=== PATIENT | female | born 1930 | race Caucasian/White ===

== ENCOUNTER 2019-09-11 19:20 | Inpatient (IN) | payer OTHER ==
[~2019-09-11] VITALS: Ht 152.4 cm; Wt 76.7 kg
[2019-09-11 19:23] VITALS: BP 190/77
[2019-09-11 20:09] LABS: URINE BILIRUBIN NEGATIVE (Negative); URINE BLOOD NEGATIVE (Negative); URINE CLARITY CLEAR; URINE COLOR YELLOW; URINE GLUCOSE-RANDOM* NEGATIVE (Negative); URINE KETONES NEGATIVE (Negative); URINE LEUKOCYTES-REFLEX NEGATIVE (Negative); URINE NITRITE-REFLEX NEGATIVE (Negative); URINE PROTEIN (DIPSTICK) NEGATIVE (Negative); URINE UROBILINOGEN 0.2 E.U./dl (0.2-1.0)
[2019-09-11 20:26] LABS: AMP/METHAMP Negative (Negative); BARBITURATES Negative (Negative); BENZODIAZEPINES Negative (Negative); COCAINE Negative (Negative); METHADONE Negative (Negative); OPIATES Negative (Negative); PCP Negative (Negative)
[2019-09-11 20:37] LABS: ABSOLUTE NEUTROPHILS 10.3 thou/uL (1.4-8.2); BASOPHILS 0.8 % (0.0-2.0); EOSINOPHILS 0.5 % (0.0-3.0); HEMATOCRIT 31.7 % (37.0-47.0); MCH 24.3 pg (26.0-34.0); MCHC 31.4 g/dL (28.0-37.0); MCV 77.2 fL (80.0-100.0); MONOCYTES 11.5 % (1.0-8.0); PLATELET COUNT 212 thou/uL (150-400); POLYS 75.2 % (36.0-66.0); RDW 15.4 % (10.5-14.5); WBC 13.6 thou/uL (4.0-11.0)
[2019-09-11] MEDS ORDERED: CALCIUM CARBON500 MG PO (20:51)
[2019-09-11] MEDS ORDERED: SYMBICORT160 MCG/4. INH (20:54)
[2019-09-11] MEDS ORDERED: PROAIR HFA8.5 GM INH (20:54)
[2019-09-11] MEDS ORDERED: FLONASE 0.05%50 MCG NARES (20:55)
[2019-09-11] MEDS ORDERED: TESSALON PERLE100 M1 PO (20:55)
[2019-09-11 20:56] LABS: CREATININE 0.9 mg/dL (0.6-1.0); POTASSIUM 3.6 mmol/L (3.5-5.1)
[2019-09-11] MEDS ORDERED: FUROSEMIDE 40 M40 MG PO (20:56)
[2019-09-11] MEDS ORDERED: DELZICOL400 M1 PO (20:56)
[2019-09-11] MEDS ORDERED: COZAAR 25 MG TA25 M2 PO (20:57)
[2019-09-11] MEDS ORDERED: HYDRALAZINE 5050 MG PO (20:57)
[2019-09-11] MEDS ORDERED: REMERON15 M2 PO (20:58)
[2019-09-11] MEDS ORDERED: BYSTOLIC10 MG PO (20:58)
[2019-09-11] MEDS ORDERED: PROTONIX40 M2 PO (20:59)
[2019-09-11] MEDS ORDERED: ASPIR 8181 M1 PO (20:59)
[2019-09-11] MEDS ORDERED: LEVEMIR100 UNIT/1 SUBQ (21:00)
[2019-09-11 21:02] LABS: ALBUMIN 3.4 g/dL (3.4-5.0); DIRECT BILIRUBIN 0.1 mg/dL (<0.1-0.2); TOTAL BILIRUBIN 0.4 mg/dL (<0.1-1.0)
[2019-09-11] MEDS ORDERED: FEMARA2.5 MG PO (21:05)
[2019-09-11] MEDS ORDERED: PREDNISONE 20 M20 M1 PO (21:06)
[2019-09-11] MEDS ORDERED: XANAX 0.25 MG0.25 MG PO (21:07)
[2019-09-11] MEDS ORDERED: ZOLOFT25 MG PO (21:07)
[2019-09-11] MEDS ORDERED: HYDROXYZINE HCL25 M2 PO (21:07)
--- NOTE | 2019-09-11 22:45 | NUR ---
SENIOR BEHAVIORAL NURSE AT BEDSIDE COMPLETING ADMISSION ASSESSMENT
[2019-09-11 23:44] VITALS: BP 153/50
[2019-09-12 00:30] VITALS: BP 152/52; BP 158/61
--- NOTE | 2019-09-12 02:08 | NUR ---
PT ARRIVED ON THE UNIT FROM ER. A&OX3-[address] ON 2L OF O2. IV INTACT. PT OREINTED TO THE ROOM AND ADMISSION DONE AND CHARTED. PT DENIES, N/V. COUGH NOTED AND STRESS INCONTINENCE WHEN COUGHING. EXT FEMALE CATH IN PLACE. ADVICED PT TO CALL IF NEEDED. PT IN GRIEF STATED " IN APR AND September WOULD HAVE BEEN HIS BIRTHDAY." CURRENTLY LIVES ALONE IN [facility] AND HAS NURSE AID THAT COMES IN TO CHECK ON HER. PT DENIES ANY SUCIDAL THOUGHTS. NOW RESTING WELL. LIMB ALERT ON RT ARM FOR HX OF BREAST CANCER. VSS AND FALL PREC IN PLACE WILL CONT WITH POC TILL EOS.
[2019-09-12 05:55] VITALS: BP 166/66
[2019-09-12 08:03] VITALS: BP 173/72
--- NOTE | 2019-09-12 08:46 | EKG ---
[facility] [place] [address] ELECTROCARDIOGRAM REPORT Name: CRISTI WATKINS Room #: 460-P ADM IN M.R.#: [id number] Admission: 09/11/19 Attend Phys: George Lindsey MD Discharge: Date of : [birth year] Report #: [id number] THIS REPORT FOR: cc: FAM - No family physician/PCP FAM - No family physician/PCP Kadeem Monae MD [facility] ~ THIS REPORT FOR: //name// [facility] ED Test Date: 2019-09-11 Test Time: 19:41:28 Pat Name: CRISTI WATKINS Department: Room: [facility] Gender: F Digital Media Producer: PAUL : [id number] Requested By: Renetta Allen Order Number: [id number] MD: Kadeem Monae Measurements Intervals [place] Rate: 94 P: 48 AR: 174 QRS: 25 QRSD: 94 T: 72 QT: 376 QTc: 471 Interpretive Statements Sinus rhythm Nonspecific T abnormalities, lateral leads No previous ECG available for comparison Electronically Signed On 09-12-2019 8:45:17 PARKING METER INSTALLER by Kadeem Monae [email or web address] <ELECTRONICALLY SIGNED> By: Kadeem Monae MD, FACC 09/12/19 0845 194 40 Kadeem Monae MD, [facility] /EPI
[2019-09-12 09:05] VITALS: BP 158/55
[2019-09-12 13:10] VITALS: BP 156/55
[2019-09-12] MEDS ORDERED: PRANDIN2 MG PO (13:23)
[2019-09-12] MEDS ORDERED: HUMALOG100 UNIT/1 SUBQ (13:37)
--- NOTE | 2019-09-12 15:28 | NUR ---
PT ADMITTED RELATED TO COPD EXAC AND ANXIETY. CM REVIEWED CHART AND SPOKE WITH CARE TEAM. CM MET WITH PT AT BEDSIDE THIS DAY. PT IS A&O X4. CM ROLE INTRODUCED. PT INDICATED SHE LIVES IN A 1 BEDROOM INDEPENDENT LIVING APARTMENT AT [facility]. PT INDICATED SHE HAS A 4WW WITH A SEAT THAT SHE USED YACHT RIGGER. PT INDICATED SHE HAD HOME 02 IN THE PAST BUT THAT THE SUPPLIER PICKED IT UP IN JULY PT WASN'T USING IT. PT STATES SHE HAS TWO INHALERS SHE USES AT HOME BUT NO OTHER RESP EQUIPTMENT. PT INDICATED SHE HAS BEEN IN AND OUT OF HOSPITALS AND REHAB SINCE JULY. SHE STATED THAT SHE HAD [facility] AND [facility] IN THE PAST. PT INDICATED THAT SHE HAD BEEN ON SERVICE WITH [facility] YACHT RIGGER. PT INDICATED HE SPOUSE PAST Apr. PT'S PCP IS DR. FOLEY [facility]. PT HAD PLANNED TO GO TO 5S [facility] AND STILL WANTS TO GO IF SHE CAN BE TITRATED OF 2L OF O2. PSYCH IS FOLLOWING AND FEELS IT WOULD BE APPROPRIATE. CM TO FOLLOW INDICATED WITH DC PLANNING.
--- NOTE | 2019-09-12 16:59 | NUR ---
A/O, cooperative; patient showed sadness about her loss of the , stating," It is hard." BG elevated, César Ramachandran has been reported to, orders given and administrated. BG 205 now.BP elevated, hydralazine adminstrated and worked; patient reported yellow sputum to Dr. Lindsey; son of the patient stated to the staff that patient is allergy to Lexapro and gabapentin, the staff charted it.
--- NOTE | 2019-09-12 18:05 | NUR ---
Patient became anxious after the students left, the staff tried to spend as much time with her as possible; patient complains of coughing, César Ramachandran is aware.
--- NOTE | 2019-09-12 19:01 | NUR ---
Patient refuese medication for anxiety and coughing, kept apologizing to the staff for being angry.
--- NOTE | 2019-09-12 19:03 | NUR ---
Patient claimed her insurance would not pay for Mesalamine any more. patient also stated," I can take it." , patient stated that she would talk to her doctor. this information will be passed on to the night nurse.
[2019-09-12 19:33] VITALS: BP 164/43
--- NOTE | 2019-09-13 03:56 | NUR ---
Assumed pt care @191. pt a&ox3. very forgetful and confused. oxygen was d/c due to stable numbers and pt didn't want to wear it anymore. pt had a hard time going to bed. pt stayed up most of the night crocheting and wanting staff to come in and talk with her. no s/s of acute distress. will cont to monitor
[2019-09-13 05:16] LABS: ABSOLUTE NEUTROPHILS 8.6 thou/uL (1.4-8.2); BASOPHILS 0.2 % (0.0-2.0); HEMATOCRIT 29.6 % (37.0-47.0); HEMOGLOBIN 9.4 gm/dL (12.0-15.0); LYMPHOCYTES 6.2 % (24.0-44.0); MCH 24.4 pg (26.0-34.0); MCHC 31.6 g/dL (28.0-37.0); MCV 77.4 fL (80.0-100.0); MONOCYTES 4.4 % (1.0-8.0); PLATELET COUNT 170 thou/uL (150-400); POLYS 89.2 % (36.0-66.0); RBC 3.83 mil/uL (4.20-5.00); RDW 15.7 % (10.5-14.5); WBC 9.7 thou/uL (4.0-11.0)
[2019-09-13 05:22] LABS: CALCIUM 9.6 mg/dL (8.5-10.1); CREATININE 0.7 mg/dL (0.6-1.0); MAGNESIUM 1.8 mg/dL (1.8-2.4); POTASSIUM 4.5 mmol/L (3.5-5.1)
[2019-09-13 08:08] VITALS: BP 155/44
[2019-09-13 10:39] LABS: ABSOLUTE RETIC COUNT 0.0879 10^6/uL; OBSERVED RETIC COUNT 2.27 % (0.6-2.6)
[2019-09-13 10:47] LABS: % SATURATION 5 % (20-39); IRON 17 ug/dL (50-170); TIBC 372 ug/dL (250-450)
[2019-09-13 11:41] VITALS: BP 149/52
--- NOTE | 2019-09-13 12:15 | NUR ---
Dr. Denton asked me to assess patient to see if she would meet criteria for SBH. Pt is currently on 2L of O2 per nasal cannula. If this can be titrated and d/c then the patient would meet criteria for SBHU. [facility]. Pt reports having an angry outburst last night. She reported this is the first time she has been angry in a long time. She reports her passing away in Cot 2019. She has several moves recenlty. She admits suffering from grief, being depressed and having panic attacks, and anxiety. She is unableto rate her depression and anxiety on a scale of 1 to 10. She stated that she is anxiety daily, except for yesterday when she was angry. I will consult Dr. Denton regarding the oxygen. Her nurse was also informed about the O2 situation.
--- NOTE | 2019-09-13 12:28 | NUR ---
Assumed pt care at 7am.Pt up in chair very upset and crying.Emotional support given.Pt wanted to discuss family issues with Clara rn.Pt informed that Clara will stop by after report to talk .Assessment completed.vss but still wheezes. Dr Garza4y here,order noted.rn document improvement specialist came to eavaluate pt for transfer to 5s but pt has to be weaned off o2 .Pt haqs been calm and cooperate with staff today.No verba; c/o at present.Raeann student nurse from [facility] [employer] [facility] in room with pt at all times.Will continu4 to monitor.
[2019-09-13 19:35] VITALS: BP 156/55
--- NOTE | 2019-09-14 06:03 | NUR ---
no concerns overnight. pt was in good spirit. took meds with no problems. still on 1Lnc oxygen and sats wnl. no s/s of distress noted or verbalized. v/s stable. will cont to monitor
[2019-09-14 07:37] VITALS: BP 169/74
[2019-09-14 16:30] VITALS: BP 158/61
--- NOTE | 2019-09-14 18:24 | NUR ---
Assumed pt care this am, Vs stable. Empitions would rollercoaster through out the day happy to upset. Lungs are still wheezing, still on 1L of O2 via NC. Pt is up as armida. Was pleasant through out the afternoon, dietn and medications are well tolerated. POC followed no signs or verbalizations of distress noted. Pt has been transferred to in room 405, report given to nurse and son informed.
--- NOTE | 2019-09-14 19:17 | NUR ---
ASSUMED PATIENT CARE AT 0615. PATIENT IS AOX4. PATIENT MOVED FROM 4W, REPORT RECEIVED FROM GUILLE. PATIENT IS DEALING WITH A LOT OF GRIEF AFTER LOSING OF 70 YEARS ON 05/07/19. FALL PRECAUTIONS ARE IN PLACE, CALL LIGHT WITHIN REACH.
[2019-09-14 19:39] VITALS: BP 149/64
--- NOTE | 2019-09-15 04:16 | NUR ---
PATIENT ALERT AND ORIENTED X4. DENIES PAIN. 1LNC OFF AND ON PER PATIENT. UP ADLIB TO BATHROOM AND AROUND ROOM. PATIENT IS UPSET ABOUT HER MISSING CLOTHES THAT DID NOT COME TO HER ROOM ON 4W FROM THE ED. HOWEVER, STONEMASON APPRENTICE STATED THAT THE PATIENT WAS ON HER CELL PHONE WHICH WAS ON SPEAKER AND THE OTHER [employer] STATED THAT THEY HAD HER CLOTHES FROM WHEN SHE WAS ADMITTED. BLOOD SUGAR WAS 100 AT 2100 - THIS NURSE HELD THE STANDING ORDER OF 25UNITS OF LANTUS, THE SLIDING SCALE OF LISPRO DID NOT CALL FOR ANY INSULIN. PATIENT WAS GIVEN A SNACK AND BS INCREASED TO 193 AT WHICH TIME THE 25UNITS OF LANTUS WAS GIVEN. PATIENT HAS BEEN VERY ARGUMENTATIVE AND AGRESSIVE (THREW URINE FILLED BRIEF AT STONEMASON APPRENTICE). PATIENT HAD SEVERAL QUESTIONS REGARDING TWO OF HER MEDICATIONS (XANAX AND ZOLOFT). THESE WERE REVIEWED BY THIS NURSE, HOWEVER, NOT TO THE SATISFACTION OF THE PATIENT SHE REFUSED TO ACCEPT THEIR USE EVEN WHEN SHOWN TO HER ON THE CELL PHONE. GIVEN PRN TRAMADOL AND EVENTUALLY PATIENT HAS BEEN ABLE TO GET SOME SLEEP. WILL MONITOR.
[2019-09-15 07:10] VITALS: BP 181/94
[2019-09-15 10:30] VITALS: BP 157/68
[2019-09-15 15:45] VITALS: BP 169/65
[2019-09-15 16:34] VITALS: BP 169/65
--- NOTE | 2019-09-15 17:36 | NUR ---
ASSUMED CARE AT 0700. CALLED DR. MATHEWS THIS MORNING FOR ELEVATED BP, RECEIVED AN ADDITIONAL 1X ORDER FOR HYDRALAZINE. PT VSS AT THIS TIME. PT HAS SOME CONFUSION AND AGITATION. PT REFUSED MEDS, NURSE ENCOURAGED PT TO TAKE THE BP MEDICATIONS. PT ALSO AGREED TO RECEIVE IV ABX SCHEDULED. PT WILL GET UP WITHOUT CALLING AND GO TO THE RESTROOM. PT HAS STRESS INCONTINENCE WHEN SHE LAUGHS OR COUGHS. PT HAD 1 SMALL BM. PT RECEIVED REDIRECTION FOR CALLING HOME HEALTH AND DIFFERENT PEOPLE TELLING THEM SHE IS IN TROUBLE AND TO COME GET HER FROM THIS PLACE. PT REFUSED ANXIETY MEDS AND DR. MATHEWS DISCONTINUED. FALL PRECAUTIONS IN PLACE/PERSONAL ITEMS IN REACH. RIGHT ARM IV IS PATENT. WILL CONTINUE TO MONITOR.
[2019-09-15 19:35] VITALS: BP 183/75
[2019-09-15 22:00] VITALS: BP 169/72
--- NOTE | 2019-09-16 03:01 | NUR ---
PATIENT ALERT AND ORIENTED X4. UP ADLIB IN ROOM. BS MONITORED PER ORDER AND INSULIN GIVEN. PATIENT TAKES HER 02NC OFF AND ON DURING THE NIGHT. THIS NURSE GAVE PATIENT PRN MEDICATION FOR HER INCREASED BP AND COUGH, ALSO TO HELP HER SLEEP. UP IN ROOM GOING THROUGH THE CLOSET AT TIMES. PATIENT WILL FOLLOW DIRECTIONS AT TIMES THEN WILL BE FORGETFUL AND TEARFUL. RESTING AT TIME OF NOTE, WILL MONITOR.
[2019-09-16 04:20] VITALS: BP 175/74
[2019-09-16 10:34] VITALS: BP 175/74
[2019-09-16 16:25] VITALS: BP 155/59
--- NOTE | 2019-09-16 16:28 | NUR ---
SW reviewed chart and spoke with nursing and attending physician. Pt transferred to [facility] from and remains on O2. Plan is for pt to discharge to [facility] when weaned off O2. Pt is from [facility]. SW is following to assist as needed with discharge planning.
--- NOTE | 2019-09-16 20:06 | NUR ---
PT IS AOX3, VSS, NO C/O PAIN. PT IS IN BETTER SPIRITS TODAY. PT TOOK MEDS ORDERED. UP IN RECLINER FOR MOST OF THE DAY, TOLERATING DIET, S/S INSULIN PROVIDED ORDERED. LEFT FA IV HAD A LEAK, PULLED IV OUT. PT AGREED TO A NEW IV. CALL LIGHT/PERSONAL ITEMS IN REACH. WILL CONTINUE TO MONITOR.
--- NOTE | 2019-09-17 03:55 | NUR ---
Assumed pt care at 1900. Pt's A/OX4 with forgetfulness noted. VSS. Pt is up with SBA. Denies pain on assessment. VSS. Pt gets dyspnea on exertion, encouraged to do deep breathing and effective sats 94% on RA.Pt wears briefs,does have stress incontinence. Continent of bowels. Pt encouraged to call for help before getting OOB and doesn't always do so. Fall precautions in place. Pt resting quietly at this time, will continue to monitor.
[2019-09-17 06:03] LABS: HEMATOCRIT 32.2 % (37.0-47.0); HEMOGLOBIN 10.3 gm/dL (12.0-15.0); MCH 24.3 pg (26.0-34.0); MCV 75.9 fL (80.0-100.0); RBC 4.24 mil/uL (4.20-5.00); RDW 15.2 % (10.5-14.5); WBC 10.7 thou/uL (4.0-11.0)
[2019-09-17 06:05] LABS: CALCIUM 10.1 mg/dL (8.5-10.1); CREATININE 0.7 mg/dL (0.6-1.0); POTASSIUM 4.1 mmol/L (3.5-5.1)
[2019-09-17 08:12] VITALS: BP 194/82
[2019-09-17 14:25] VITALS: BP 171/62
--- NOTE | 2019-09-17 16:09 | NUR ---
SW reviewed chart and spoke with nursing and attending physician. Pt is not yet medically stable for discharge to [facility]. Pt requiring O2. Anticipate pt will be able to d/c to [facility] in 1-2 days. SW is following to assist as needed with discharge planning.
[2019-09-17 18:39] VITALS: BP 183/75
--- NOTE | 2019-09-17 20:05 | NUR ---
ASSUMED CARE OF PATIENT AT 0715, PATIENT ALERT AND ORIENTED X 4, CAN BE FORGETFUL. UP WITH SBA WITH O2, GB AND WALKER. RIGHT LIMB ALERT. B/P ELEVATED, NOTIFIED DR HALL, ONE TIME ORDER FOR LOSARTAN 50 MG X 1. B/P RECHECKED PRIOR TO LOSARTAN 171/62, ALSO NOTIFIED DR HALL OF ELEVATED BLOOD SUGARS, STILL RECEIVING IV STEROIDS. SATS STILL DROP IN THE HIGH 80'S, O2 AT 1 LITER/NC IN PLACE. WILL BE DISCHARGE TO [address] [place] [address] AFTER MED[address]ALLY STABLE PER DR HALL. LEFT FOREARM IV IN PLACE. WILL CONTINUE TO MONITOR.
[2019-09-17 20:06] VITALS: BP 174/69
[2019-09-18 00:06] VITALS: BP 155/60
[2019-09-18 04:43] VITALS: BP 171/65
--- NOTE | 2019-09-18 04:50 | NUR ---
Assumed pt care at 1900. A/OX4 with forgetfulness noted but able to make needs known. Pt is up with SBA. BP elevated at HS 189/72 medicated per EMAR with relief noted 155/60. Denies pain on assessment. Pt ambualated on the hallway with screen writer before going to bed, able to maintain sats>90% though has SOB. C/o insomnia but declined need for sleep aid, depressed mood expressing worries about her house she needs to sell moral support given to pt. Pt anxious this morning, medicated with Hydroxyzine will monitor for effectiveness. Fall precautions in place,calling approp for help. Resting quietly w/o distress, will continue to monitor pt.
[2019-09-18 07:17] VITALS: BP 182/72
[2019-09-18 12:28] VITALS: BP 182/77
[2019-09-18] MEDS ORDERED: ACETAMINOPHEN325 M1 PO (12:51)
[2019-09-18] MEDS ORDERED: CARDIZEM CD 18180 M3 PO (12:51)
[2019-09-18] MEDS ORDERED: MUCINEX DM ER1 EAC1 PO (12:51)
[2019-09-18] MEDS ORDERED: SERTRALINE HCL50 MG PO (12:51)
[2019-09-18] MEDS ORDERED: TRAZODONE HCL50 MG PO (12:51)
[2019-09-18] MEDS ORDERED: LANTUS SUBQ (12:51)
[2019-09-18] MEDS ORDERED: HYDROXYZINE HCL10 M2 PO (12:51)
[2019-09-18] MEDS ORDERED: HUMALOG100 UNIT/1 SUBQ (12:51)
[2019-09-18] MEDS ORDERED: LEVAQUIN 500 M500 M1 PO (12:51)
[2019-09-18] MEDS ORDERED: MIRALAX17 GM PO (12:51)
[2019-09-18] MEDS ORDERED: COZAAR100 MG PO (12:51)
[2019-09-18] MEDS ORDERED: CEPACOL SORE T1 EAC7 PO (12:51)
[2019-09-18] MEDS ORDERED: RAYOS5 MG PO (12:51)
[2019-09-18] MEDS ORDERED: ALBUTEROL2.5 MG/0.5 INH (12:51)
--- NOTE | 2019-09-18 13:08 | NUR ---
Assess due to length of stay. Admit with copd and depression; spouse recently passed in 04/2019. Pt reports appetite doing pretty well, mild 4 lb wt loss. Asking about snacks or glucerna supplement. Can add 1x day glucerna. Pt aware of some snacks available in [place] and request as needed. BG 117-364 and aggravated with steroid. On insulin. Otherwise low nutrition risk.
--- NOTE | 2019-09-18 13:58 | NUR ---
DISCHARGE NOTE: SW reviewed chart and spoke with nursing and attending physician. Pt is medically stable for discharge to [facility] today. Discharge orders written. SW met with pt at bedside to provide update. Pt is aware and agreeable with discharge plan. Pt's granddtr was on the phone with the physician rounded. Pt's family will be notified of room move. SW is available to assist should needs arise.
--- NOTE | 2019-09-18 14:30 | NUR ---
I was asked to reassess the patient to see if she meets criteria for SBHU. The patient appears to be anxious. She stated she is worred about what to do about her house. Lucita Chiu shared that her passed in Apr 2019 and her daughter passed in 2010. She is willling to be admitted to [facility]. Lucita Chiu is grieving the losses mentioned above as well as some concerns about housing. She does meet criteria for SBH.
--- NOTE | 2019-09-18 15:05 | NUR ---
PT IS AOX4, BP ELEVATED THIS AM. PT RECEIVED PRN HYDRALAZINE. PT VSS, UP AD HERMANN, TOLERATING DIET WELL. PT WILL CALL WHEN SHE NEEDS ASSISTANCE. IV PULLED FROM LEFT FA. BELONGINGS ARE PACKED AND READY TO TRANSFER. NURSE CALLED REPORT TO [facility]. VOLUNTEER SERVICE WITH TRANSPORT PT TO ROOM 523.
== END 2019-09-18 16:00 | DRG 189 ==
LOC: ER 19:20 → 4N 23:39 → 4W 23:39 → EROBS 23:39 → 4W 09-12 00:14 → 4N 09-14 18:30 → ENTRNSPT 09-15 12:12 → EDTRNSPTSTS 09-18 15:31 → 4N 09-18 16:00
PROVIDERS: Emergency Medicine; Internal Medicine; Nurse Practitioner; ADMIT Hospitalist
DX: J96.21 Acute and chronic respiratory failure with hypoxia (principal); J44.1 Chronic obstructive pulmonary disease with (acute) exacerbation; E87.1 Hypo-osmolality and hyponatremia; F33.2 Major depressive disorder, recurrent severe without psychotic features; J44.0 Chronic obstructive pulmonary disease with (acute) lower respiratory infection; F41.9 Anxiety disorder, unspecified; I10 Essential (primary) hypertension; K58.9 Irritable bowel syndrome, unspecified; J20.9 Acute bronchitis, unspecified; E87.8 Other disorders of electrolyte and fluid balance, not elsewhere classified; D50.9 Iron deficiency anemia, unspecified; E66.01 Morbid (severe) obesity due to excess calories; E11.65 Type 2 diabetes mellitus with hyperglycemia; I16.0 Hypertensive urgency; Z79.82 Long term (current) use of aspirin; Z79.899 Other long term (current) drug therapy; Z88.5 Allergy status to narcotic agent; Z88.0 Allergy status to penicillin; Z88.8 Allergy status to other drugs, medicaments and biological substances; Z87.891 Personal history of nicotine dependence; Z99.81 Dependence on supplemental oxygen; Z90.11 Acquired absence of right breast and nipple; Z90.49 Acquired absence of other specified parts of digestive tract; Z90.89 Acquired absence of other organs; Z91.018 Allergy to other foods; Z90.710 Acquired absence of both cervix and uterus; Z68.33 Body mass index [BMI] 33.0-33.9, adult
CPT/HCPCS: 10040; 10091

== ENCOUNTER 2019-09-18 16:35 | Inpatient (IN) | payer OTHER ==
[~2019-09-18] VITALS: Ht 152.4 cm; Wt 75.2 kg
[~2019-09-18 16:35] MED LIST: ACETAMINOPHEN325 M1 PO; ALBUTEROL2.5 MG/0.5 INH; ASPIR 8181 M1 PO; BYSTOLIC10 MG PO; CALCIUM CARBON500 MG PO; CARDIZEM CD 18180 M3 PO; CEPACOL SORE T1 EAC7 PO; COZAAR 25 MG TA25 M2 PO; COZAAR100 MG PO; DELZICOL400 M1 PO; FEMARA2.5 MG PO; FLONASE 0.05%50 MCG NARES; FUROSEMIDE 40 M40 MG PO; HUMALOG100 UNIT/1 SUBQ; HYDRALAZINE 5050 MG PO; HYDROXYZINE HCL10 M2 PO; HYDROXYZINE HCL25 M2 PO; LANTUS SUBQ; LEVAQUIN 500 M500 M1 PO; LEVEMIR100 UNIT/1 SUBQ; MIRALAX17 GM PO; MUCINEX DM ER1 EAC1 PO; PRANDIN2 MG PO; PREDNISONE 20 M20 M1 PO; PROAIR HFA8.5 GM INH; PROTONIX40 M2 PO; RAYOS5 MG PO; REMERON15 M2 PO; SERTRALINE HCL50 MG PO; SYMBICORT160 MCG/4. INH; TESSALON PERLE100 M1 PO; TRAZODONE HCL50 MG PO; XANAX 0.25 MG0.25 MG PO; ZOLOFT25 MG PO
[2019-09-18 17:07] VITALS: BP 176/60
--- NOTE | 2019-09-18 17:52 | NUR ---
88 YEAR OLD WHITE FEMALE BROUGHT UP FROM THE MEDICAL FLOOR. PT. IS DEPRESSED AND TEARFUL. SHE STATED HER IN APRIL 2019. SHE DENIES BEING SUICIDAL. SHE IS DIABETIC AND ON A CARB CONTROLLED DIET. HER BLOOD SUGAR TONIGHT WAS 149. SHE CONTINOUSLY STATES SHE DOES NOT NEED TO BE HERE. SHE WANTS DR. WATKINS NOTIFIED SO SHE CAN LET HER GO HOME. SHE HAS BEEN LIVING AT [facility]. SHE IS AMBULATORY. SHE SAYS SHE FEELS A BIT WEAK AND WAS GIVEN A WALKER DUE TO THAT. SHE STATES SHE HAS A TOP DENTURE PLATE AND BOTTOM PARTIALS. SHE HAS GLASSES. SHE DOES NOT HAVE ANY HEARING AIDS. SHE DENIES A HISTORY OF DRINKING OR SUICIDE WITH HER OR THE FAMILY. SHE WAS A SMOKER BUT STOPPED IN ABOUT 1979. SHE HAS HAD A RIGHT MASTACTOMY. SHE IS NOT TO HAVE B/P'S IN THE RIGHT ARM. SHE HAS A HISTORY OF DM, TONSELLECTOMY, ADNOIDECTOMY, HYSTERECTOMY, HTN, GALLBLADDER, CANCER RIGHT BREAST.
[2019-09-18 20:00] VITALS: BP 143/69
[2019-09-18 20:36] VITALS: BP 143/69
--- NOTE | 2019-09-19 05:06 | NUR ---
PATIENT WAS IN DINING ROOM TONIGHT FOR SNACK TIME UNTIL SHE WENT TO BED. SHE IS A/0X4. SHE IS MAD AT HER DAUGTER IN LAW AND SON BECAUSE THEY BROUGHT HER STRAIGHT HERE BECAUSE SHE WAS HAVING ANXIETY FROM NOT BEING ABLE TO BREATHE AND THEY TOLD ER THAT SHE NEEDED TO BE ADMITTED TO PSYCH. THEY THEN LEFT HER TO GO BACK HOME. PATIENT HAS CHRONIC/ACUTE BREATHING ISSUES. SHE IS ALSO HAVING A HARD TIME GREIVING THE OF HER 05/07/19. THEY WERE FOR 70 YEARS. SHE STATES HER SON MOVED HIS MOM TO [employer] RECENTLY. SHE STATES SHE NEEDS TO GET HER HOUSE ON THE MARKET TO SELL. PATIENT SEEMS RELIABLE AND VERY ORIENTED. PATIENT 02 SAT RUNS FROM 87-92% WHEN LAYING DOWN. BUT RECOVERS QUICKLY WHEN SHE IS AWOKEN. PATIENT DOES HAVE RT NEBULIZERS ORDERED SCHEDULED AND PRN. PATIENT'S HOB UP 45 DEGREES. PATIENT SHOWS NO RESPIRATORY DISTRESS, OR AIR HUNGER, SOB. CONTINUED MONITORING OF BREATHING ASSESSMENT ON ROUNDS. PATIENT APPEARS COMFORTABLE AND DENIES PAIN. INVENTORY LIST OF BELONGINGS DONE AND RECEIPTS FOR PATIENT IN CHART FOR ITEMS SEALED AND SENT TO SECURITY. PATIENT HAS BEEN PLEASANT AND COOPERATIVE. SHE IS SAD AT TIMES WHEN TALKING BUT NOT TEARFUL. PT CONSULT DONE FOR EVALUATION OF GAIT AND BALANCE. PATIENT IS WEAK AT TIMES BUT IS STEADY ON FEET AND USES WALKER OUTSIDE OF ROOM. BED IN LOW POSITION. NOTIFIED KIM ACUÑA IN PERSON ON THIS. SHE STATES NO FURTHER ORDER AT THIS TIME SHE RECOVERS QUICKLY.
[2019-09-19 08:59] VITALS: BP 157/40
--- NOTE | 2019-09-19 13:07 | NUR ---
SW called and spoke with pt's son /DPJAE Garcia and he provided a detailed social HX. SW completed the intake assessment and TP. Jose reported that pt lived at [facility] with her spouse but recently moved into a smaller apartment. Pt reported to him that she is feeling lonesome. Sw asked family to consider AL . although money might be a restriction. Pt sees Dr Pompa for psych at [facility] and is willing to include talk therapy. Jose reported that he reema have his niece call for collateral information.
[2019-09-19 13:09] VITALS: BP 157/40
--- NOTE | 2019-09-19 13:20 | NUR ---
ASSUMED CARE AT 0700 THIS MORNING. PT. WAS SITTING ON THE SIDE OF HER BED C/O SHORTNESS OF AIR. NOC NURSE AND DAY NURSE WAS IN THE ROOM, TAKING HER BLOOD PRESSURE AND PULSE OXIMETER. SHE WAS ALSO C/O PAIN ABOUT WHERE HER STOMACH IS AND SAYING IT HURTS. HER B/P AND PULSE OX. WAS WNL. SHE WAS VERY ANXIOUS. SHE WAS ASKED TO LAY DOWN AND ALLOW HER BREATHING TO BECOME NORMAL AGAIN. SHE LAYED DOWN ON THE BED AND WITHIN 5 MINUTES SHE STATED SHE WAS MUCH IMPROVED. SHE CAME ONTO THE UNIT TO EAT BREAKFAST. SHE TOOK HER MORNING MEDICATIONS WITHOUT PROBLEMS NOTED. SHE ATTENDED GROUPS THROUOUT THE DAY. SHE SPOKE WITH DR. WATKINS. SHE CONTINUES TO BE ANXIOUS AT TIMES. FLAT AFFECT, DEPRESSED MOOD.
--- NOTE | 2019-09-19 14:58 | NUR ---
Pt sees Dr Stark at [place] [phone]
[2019-09-19 19:51] VITALS: BP 153/48
--- NOTE | 2019-09-20 04:10 | NUR ---
Assumed care of pt @ 1900. Pt calm et cooperative with pleasant demeanor this shift. Pt took medications whole without difficulty. Ambulates the halls ad armida with steady gait. VSWNL. Health assessment with no abnormalities noted at present time. Denies SI/HI at present time. Socialized with peers in dayroom until HS. Currently resting in bed with eyes closed. Will continue to monitor per protocol.
[2019-09-20 07:25] VITALS: BP 143/54
[2019-09-20 15:25] VITALS: BP 143/54
--- NOTE | 2019-09-20 16:03 | NUR ---
1600 RESUMMED CARE FROM OVERNIGHT SHIFT THIS AM, PATIENT AT FIRST REFUSED HER MEDICATION. DR HALL CAME TO TALK WITH RAVINDER ABOUT WHY HER INSULIN WAS 10 UNITS WITH EACH MEAL. HE TOLD HER WHEN SHE WAS ON THE MEDICAL FLOOR SHE WAS GETTING STEROIDS AND THAT WAS CAUSES HER BS TO BE IN THE 3OO'S. I ASKED DR HALL TO CHANGE HER INSULIN ORDERS BECAUSE HER BLOOD SUGARS WERE 109, THEN 183. PATIENT DID TAKE HER MEDICATION AFTER I EXPLAINED THAT SHE NEEDS WHAT IS ORDERED. PATIENT LUNGS SOME RATTLES PATIENT DOES GET BREATHING TREATMENTS, HER BOWEL SOUNDS PRESENT IN ALL 4 QUADRANTS. ABDOMEN SOFT AND ROUND PATIENT CALM COOPERATIVE SHE WANTS TO KNOW WHAT MEDS SHE IS. WILL CONTINUE TO MONITOR FOR SAFETY AND BEHAVIORS. PATIENT FOR SAFETY AND
[2019-09-20 20:23] VITALS: BP 161/60
--- NOTE | 2019-09-20 23:09 | NUR ---
Care assumed of patient at 1915: Patient seated in dayroom at start of shift. Interacting well with other peer, working on word search puzzle and watching TV. Alert and oriented x4. Presents with flat, depressed affect. Cooperative and pleasant. States that she is going home tomorrow, unsure of accuracy of this information. Patient denies SI/HI/AH/VH. Patient also denies anxiety or depression. However, patient observed anxious at times with some paranoia. Patient reports that her room has been changed twice today, which is accurate. However, she reports that she is fearful of falling asleep due to feeling unsafe. When attempting to explore why, patient was not able to do so. Patient attempted to provide UA sample but when she stood from the stool, the sample went into the toilet. This caused patient a large amount of anxiety. Crying, hitting the bathroom counter, stomping her feet, hollering. Patient required a lot of re-direction that everything will be OK and we will try again later. Patient did state "I just can't do anything right!". Patient resistive to taking HS Xanax. Seemed to have forgotton conversation with Dr. Denton, stating that Xanax makes her hyper and she has a fear of not being able to sleep. Denied talking to Dr. Denton about taking Xanax which is not accurate per medical record. Some forgetfulness noted in that manner. Denies pain or discomfort. Ate 100% HS snack. Accepted scheduled long acting insulin and accucheck. Patient ultimately took HS Xanax after education provided. Patient retired to bed at a reasonable hour and has been resting quietly since.
[2019-09-21 01:04] LABS: URINE BILIRUBIN NEGATIVE (Negative); URINE BLOOD NEGATIVE (Negative); URINE CLARITY CLEAR; URINE COLOR YELLOW; URINE GLUCOSE-RANDOM* NEGATIVE (Negative); URINE KETONES NEGATIVE (Negative); URINE LEUKOCYTES NEGATIVE (Negative); URINE NITRITE NEGATIVE (Negative); URINE PROTEIN (DIPSTICK) NEGATIVE (Negative); URINE SPECIFIC GRAVITY <= 1.005 (1.005-1.035); URINE UROBILINOGEN 0.2 E.U./dl (0.2-1.0)
[2019-09-21 08:34] VITALS: BP 120/41
--- NOTE | 2019-09-21 10:47 | NUR ---
IRRITABLE AND AGITATED WITH NURSING STAFF THIS AM-YELLED LOUDLY AT THIS NURSE WHEN 02 SAT PLACED ON RIGHT FINGER "ARE YOU STUPID OR SOMETHING-YOU CANT DO IT ON THAT ARM-CAN'T YOU SEE" RELUCTANT TO TAKE AM MEDICATIONS ASKING SEVERAL TIMES "DID DR. WATKINS ORDER THIS AND ASKING TO SEE TO PACKAGING PRIOR TO TAKING. IS NOTED TO HAVE MILD EXPIRATORY WHEEZE AND OCCASSIONAL PRODUCTIVE COUGH.USING ROLLER WALKER FOR AMBULATION ANG GAIT IS STEADY WITH ASSISTIVE DEVICES. 02 SAT 96 PERCENT ON RA.
[2019-09-21 20:55] VITALS: BP 143/43
--- NOTE | 2019-09-22 02:23 | NUR ---
PATIENT ASSESSED AND IS ALAERT X 3-4. REMAINS CALM AND COOPERATIVE TO CARES. UP AD HERMANN IN ROOM AND HALLWAY WITH OUT WITH A WALKER PROBLEMS. HAS A HARSH COUGH , SHE SAYS " IT FEELS LIKE THICK MUCUS". NO PARANOID ISSUES NOTED TONIGHT. SLEEPING WELL. DID GET UP ONCE AND SAID SHE WAS SOA BUT 02 SAT WAS 92%. ALSO TAKEN TYLENOL FOR CHEST DISCOMFORT FROM COUGHING AT HS. LUNGS COURSE BILATERALLY. RT TREATMENTS WITH GOOD RESULTS. NO SI/HI THOUGHTS NOTED. CONT PLAN OF CARE.VS STABLE. NO ANXIETY NOTED.
[2019-09-22 08:22] VITALS: BP 134/54
--- NOTE | 2019-09-22 09:32 | NUR ---
MORE COOPERATIVE/PLEASANT WITH NURSING THIS AM-WAS TEARFUL WHEN SPEAKING ABOUT HUSBANDS -RATES ANXIETY A 7 ON 1-10 SCALE PRIOR TO AM SCHEDUOLED VALIUM AND IS RUMINATIVE RE AM INSULIN SCHEDULED WITH BREAKFAST-INISISTING THAT INSULIN WILL CAUSE BS TO GET TOO LOW-I NEVER TOOK IT AT HOME UNLESS IT WAS OVER 150-IT'S NOT SAFE" BLOOD SUGAR THIS AM 118. CONTINUES TO HAVE HARSH NON-PRODUCTIVE COUGH. DR. HALL CONTACTED RE ABOVE-CONTINUE TO EDUCATE/ENCOURAGE COMPLIENCE WITH INSULIN ORDERED
--- NOTE | 2019-09-22 15:23 | NUR ---
TEARFUL AT 1330 WHEN APPROACHED BY THIS NURSE WITH LASIX,PREDNISONE ORDERED BY MD-STATES "I'M NOT GOING TO TAKE THOSE MEDICATIONS UNTIL I SEE DR. WATKINS-DR. WATKINS TOLD ME THAT SHE WOULD SEE ME AND NOW SHE LEFT THAT IS THE FINAL STRAW" POUNDING FIST ON TABLE AND SLAMMING WALKER ON FLOOR-THIS RN SAT WITH PT FOR APPROX 45 MINUTES ATTEMPTING TO CALM AND REASSURE-SOME PARANOIA "WHY DO ALL THE BAD THINGS HAPPEN TO ME" PT HAD SEEN DR WATKINS AT LENGTH THIS AM AND STATES WHEN REMINDED THAT SHE REMEMBERS SEEING HER WHEN ASKED IF THERE WAS A MESSAGE TO RELAY TO MD STATES "NO THEY JUST TOLD ME I COULD SEE HER AGAIN" DID EVEMNTAULLY TAKE VALIUM 2.5MG PO PRN FOR AGITATION,ACUTE ANXIETY AND SCHEDULED MEDS AT APPROX 1410. ESCORTED TO GROUP
[2019-09-22 19:29] VITALS: BP 130/44
[2019-09-22 21:00] VITALS: BP 130/44
--- NOTE | 2019-09-22 23:35 | NUR ---
PATIENT HAS BEEN UP IN THE DINING ROOM TONIGHT UNTIL SHE WENT TO BED AROUND 2200. SHE IS A/0X3-4. HER BREATHING IS CALM TONIGHT WITHOUT LABOR. SHE APPEARS RELAXED AND IS SMILING. NO ANXIETY NOTED BY VOICE OR APPEARANCE. PATIENT IS STILL STRUGGLING TO COUGH UP SOME THICK MUCUS BUT THE MUCINEX IS HELPING. PATIENT DENIES PAIN. ENCOURAGED WATER INTAKE. TEMP WAS 99.3. PATIENT CONTINUES ON DIURETICS ALSO. PATIENT UP WITH WALKER AND IS CONTINENT. SHE IS WEARING LARGE DISPOSABLE BRIEFS NOW. SHE DOESN'T WANT THE XL ONES. HOB IS UP 45 DEGREE ANGLE FOR BREATHING AND COUGH/CHOKE PREVENTION. BED IN LOW POSITION. WILL PT DENIES PAIN OR DISCOMFORT. WILL CONTINUE TO MONITOR.
[2019-09-23 08:47] VITALS: BP 154/51
--- NOTE | 2019-09-23 09:23 | NUR ---
Sw completed chart review and pt is not making gains and has some med refusals. Evin will consult with Dr Corrie bowles d/c plans, but pt may be needing AL.
--- NOTE | 2019-09-23 11:22 | NUR ---
Lying supine in bed without s/o distress. Alert and orientated X4, denies SI/HI. Sporadic, non productive cough. States she is unable to get up phlegm and thinks it is draining from her R ear and nose instead of coming from her chest. States she has been having R ear pain off and on for several days. Breath sounds clear on inspiration, slight expiratory wheeze on exhalation. No nasal flaring or retractions. Reg HR ausculated. Color pink with brisk capillary refill and palpable peripheral pulses. Independent with voiding. Active bowel sounds over soft, rounded abdomen. Regular, steady gait with walker. 1115 States "You probably think I'm crazy." and repeated statements r/t ear pain that comes and goes and that phlegm is draining from her ear to her throat and from her nose to her throat instead of coming from her chest. No s/o distress. Breath sounds clear t/o and slightly diminished on L. States she is going to rest until lunch.
--- NOTE | 2019-09-23 12:23 | NUR ---
WILBERT called and spoke with Jose son and he was not very enthusiastic about helping with d/c and AL. WILBERT called [facility] to have pt assessed for AL. Left a VM for admissions.
--- NOTE | 2019-09-23 13:10 | NUR ---
EVIN scanned adn emailed [email or web address] a list of AL and requested a choice of 3 -5 AL to send the referral to. Evin also sent the referral to [facility].
[2019-09-23 17:08] VITALS: BP 151/55
[2019-09-23 18:50] VITALS: BP 134/36
[2019-09-23 21:00] VITALS: BP 134/36
--- NOTE | 2019-09-24 01:01 | NUR ---
PATIENT WAS UP IN DR ESPINAL UNTIL SHE WENT TO BED AROUND 2200. SHE IS A/0X3-4. SHE SAW PT TODAY AND IS CLEARED TO WALK SHORT DISTANCES WITHOUT HER WALKER. SHE IS TO USE HER WALKER FOR LONGER DISTANCES. SHE DENIES PAIN. SHE HAS BEEN SMILING AND VISITING WITH OTHER PATIENTS. SHE IS CALM AND COOPERATIVE. SHE DOES HAVE DRAINAGE FROM HER SINUS' THAT SHE COUGHS UP AT TIMES AND IS CLEAR. RT'S GIVEN AT HS. HOB UP 45 DEGREES TO ASSIST IN BREATHING AND CHOKING PRECAUTION. PATIENT IS INDEPENDENT WITH CARES. PATIENT SLEEPING AT THIS TIME. BED IN LOW POSITION. ROUTINE ROUNDS FOR SAFETY ASSESSMENT.
[2019-09-24 07:48] VITALS: BP 154/48
--- NOTE | 2019-09-24 09:50 | NUR ---
CONTINUES TO HAVE FREQUENT MOSTLY NON-PRODUCTIVE COUGH-CONTINUES TO REPORT FEELING LIKE PHLEGM IS "TOO THICK" AND DIFFICULT TO "GET UP" DID SPIT UP MODERATE AMOUNT PHLEGM CLEAR-YELLOW TINTED PHLEGM. ANXIOUS FACIAL EXPRESSION AND REMAINS SUSPICIOUS OF STAFF ASKING SEVERAL TIMES IF MEDICATIONS WERE CORRECT AND WHAT THE ORDERED. DIFFICULT TO REASSURE AND PRN ANXIETY MEDICATIONS DISCONTINUED YESTERDAY.
--- NOTE | 2019-09-24 11:47 | NUR ---
Sw spoke with pt's DIl and she reported that they cannot visit any AL and do not want to send her somehwere they have not seen. Sw reinforced that pt should not be here indefinetly, and that AL was recomended. Family is wanting to d/c back to her place at [facility]. SW suggested that they hire a PD unemployed teacher or design sales consultant that they know to sit with her as she adjusts to being home again. SW can start HH ith [facility] if needed. Sw will f/u with Dr Denton for collateral information.
--- NOTE | 2019-09-24 14:20 | NUR ---
WILBERT and Dr Denton discussed pt's d/c and pt will d/c back to her home at [facility] . padmini will provide evening suppport with family. [facility] will be restarted and WILBERT provided family with handout for [facility] services. Wilbert asked dght to follow up with pt's PCP in 3 weeks. Family happy and satisfied with this outcome. 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 Wilbert reported this to nursing staff.
[2019-09-24 19:29] VITALS: BP 145/47
[2019-09-24 22:15] VITALS: BP 144/72
--- NOTE | 2019-09-25 05:50 | NUR ---
VISITED WITH PATIENT 1:1 AT BEDTIME TO SEE HOW SHE IS FEELING ABOUT HER D/C BACK TO [facility] TODAY. SHE STATES SHE'S NERVOUS ABOUT LEAVING D/T ALL THE RESTRICTIONS AND CRISIS WITH THE COVID-19 VIRUS. SHE STATES SHE FEELS GOING BACK TO THE AL IS BEST FOR NOW EVEN THOUGH SHE DOES NOT LIKE HOW THEY MANAGE THINGS THERE. WE DISCUSSED CONCENTRATING ON THE THINGS THAT ARE GOING RIGHT AND WHAT WE CAN CONTROL. DISCUSSED STARTING A GRATITUDE LIST, READING POSITIVE, INSPIRATIONAL, KAREN READINGS/MEDITATION. DISCUSSED SOCIALIZING AND CRAFT ACTIVITIES. DISCUSSED HOW TO RESPOND WHEN SHE BEGINS TO FEEL ANXIOUS AND DETERMINE WHETHER FROM HER BREATHING ISSUES OR ANXIEY. PRACTICED DEEP BREATHS IN AND RELEASING (THE ANXIETY) THE BREATHS OUT SLOWLY. DISCUSSED DEVELOPING SUPPORT SYSTEM AND STEPS TO DEALING WITH HER PANIC. PATIENT HAS BEEN CALM TONIGHT AND WORKED ON CROSSWORD PUZZLES BEFORE BED. SHE EXPRESSED HER GRATITUDE FOR THE HELP THAT SHE HAS RECIEVED HERE. DISCUSSED WITH PATIENT AND HANDOUT GIVEN TO PATIENT REGARDING GRIEVING AND THE KUBLER-ROSS STAGES. PATIENT DENIES PAIN. FEELS SHE DID WELL WITHOUT THE BID DOSING OF HER VALIUM. LIKES TO HAVE ONE AT HS THOUGH. PATIENT HAD LARGE BM TONIGHT. LUNGS CTA. SHE DOES HAVE COUGH FROM SINUS DRAINAGE BUT IS CLEAR ON PRODUCTION. WILL CONTINUE TO MONITOR.
[2019-09-25 08:53] VITALS: BP 159/51
--- NOTE | 2019-09-25 08:58 | NUR ---
WILBERT made packet and left it on the chart. Pt will d/c home to [facility] and family will slate picker at 1pm. WILBERT faxed orders and d/c summary to [facility] for pt/ot and nursing. Fax confirmation left on chart.
[2019-09-25 08:59] VITALS: BP 159/51
[2019-09-25 09:38] VITALS: BP 159/51
--- NOTE | 2019-09-25 09:47 | NUR ---
PATIENT HAS BEEN UP AND OUT ON THE UNIT, PARTICIPATING IN GROUP THERAPY. PATIENT TOOK ALL MEDICATION WHOLE WITHOUT DIFFICULTY. PATIENT IS EATING MEALS, AND DRINKING FLUID WELL. PATIENT DENIES SUICIDAL/HOMICIDAL IDEATION. SHE RATED DEPRESSION 5/10, ANXIETY 6/10. PATIENT DENIES HAVING PHYSICAL PAIN. AFFECT IS BRIGHT, MOOD EUTHYMIC. LCTA, BS+X4, ABD SOFT, NON-TENDER TO TOUCH. PATIENT DENIES VISUAL/AUDITORY HALLUCINATION. PATIENT IS DISCHARGED TO [facility], FAMILY TO PICK-UP AT 1300HRS. NO SIGN OF ACUTE DISTRESS NOTED AT THIS TIME. PATIENT CURRENTLY PARTICIPATING IN GROUP THERAPY, WILL MONITOR FOR SAFETY.
[2019-09-25] MEDS ORDERED: DIAZEPAM 2MG TAB2 MG PO (10:29)
[2019-09-25] MEDS ORDERED: ZOLOFT100 MG PO (10:29)
[2019-09-25] MEDS ORDERED: BYSTOLIC10 MG PO (10:29)
[2019-09-25] MEDS ORDERED: CARDIZEM CD 18180 M3 PO (10:29)
[2019-09-25] MEDS ORDERED: COZAAR100 MG PO (10:29)
[2019-09-25] MEDS ORDERED: HYDRALAZINE 2525 MG PO (12:13)
[2019-09-25] MEDS ORDERED: LANTUS SUBQ (12:24)
[2019-09-25] MEDS ORDERED: PREDNISONE 5 MG5 M1 PO (12:26)
[2019-09-25] MEDS ORDERED: EAR DROPS15 ML OTIC (13:07)
--- NOTE | 2019-09-25 16:33 | NUR ---
WILBERT recieved a call from pt's son Jose stating that [facility] would not be picking up this pt and " kicked it back to the hospital". Wilbert then had to call Satish and Angle from [facility] for clairifcation and waiting then recieved a VM that they " cannot meet her needs". Wilbert then contacted the [facility] and they wanted a mental health nurse added to the orders. DR Denton completed this task and WILBERT faxed the referral to [facility] [phone].
--- NOTE | 2019-09-25 16:36 | NUR ---
WILBERT then called Jose and reported to him the change of [facility]. And he issatisfied wiht this outcome
--- NOTE | 2019-09-26 12:12 | NUR ---
SW set up HH with [facility] and they confimred that this was set up. EVIN also recoeved a VM from pt's dght that she wanted O2 set up. Evin sent this message along to Dr Denton. Evin then spoke with pt's son Jose and he was satisfied that [facility] reema be helping moving forward.
== END 2019-09-25 14:00 | DRG 885 ==
LOC: SBH 16:35
PROVIDERS: ADMIT Psychiatry & Neurology Psychiatry
DX: F33.2 Major depressive disorder, recurrent severe without psychotic features (principal); J96.21 Acute and chronic respiratory failure with hypoxia; E11.65 Type 2 diabetes mellitus with hyperglycemia; J96.22 Acute and chronic respiratory failure with hypercapnia; R45.851 Suicidal ideations; J44.1 Chronic obstructive pulmonary disease with (acute) exacerbation; H61.23 Impacted cerumen, bilateral; Z60.2 Problems related to living alone; I10 Essential (primary) hypertension; F43.22 Adjustment disorder with anxiety; E78.5 Hyperlipidemia, unspecified; T38.0X5A Adverse effect of glucocorticoids and synthetic analogues, initial encounter; I16.0 Hypertensive urgency; Z88.8 Allergy status to other drugs, medicaments and biological substances; Z79.4 Long term (current) use of insulin; Z79.51 Long term (current) use of inhaled steroids; Z79.82 Long term (current) use of aspirin; Z88.6 Allergy status to analgesic agent; Z79.899 Other long term (current) drug therapy; Z88.5 Allergy status to narcotic agent; Z88.0 Allergy status to penicillin; Z90.710 Acquired absence of both cervix and uterus; Z90.49 Acquired absence of other specified parts of digestive tract; Z85.3 Personal history of malignant neoplasm of breast; Y92.89 Other specified places as the place of occurrence of the external cause
CPT/HCPCS: 10880